=== PATIENT | female | born 1985 | race Caucasian/White ===

== ENCOUNTER 2022-12-30 20:11 | Outpatient (CLI) | payer MEDICAID ==
[~2022-12-30] VITALS: Ht 162.6 cm; Wt 83.2 kg
--- NOTE | 2022-12-30 20:15 | NUR ---
G1l0. 28.5. Ambulatory to [facility] 6 with spouse. Clean gown on. EFM and TOCO explained and applied. Pt states she has been cramping since last night. Pt reports loosing her mucous plug throughtout the day and unsure if her water broke. Pt stats "I just wanted to come and make sure nothing was going on." Denies vaginal bleeding and reports good movement. Plan of care explained. 2027: SVE /-2. Bulgy bag noted on exam. 2050: called and updated on pt's status. See physican notifcation. Pt updated on plan of care and questions answered. Pt and spouse anxious and emotional support given. 2104: IV started. LR infusing per orders. 2112: Betamethasone and procardia given per providers orders. 2304: SVE recheck per providers orders /-2 with bulgy bag. Quesitons answered and possible transfer explained. 2313: called to come evaluate pt. 2344: at bedside to evaulate pt's status. Bedside ultrasound completed. Vertex presentation noted. SVE completed by provider and unchanged. explains need to be transfered to [facility] at this time. Pt and spouse agreeable and anxious. Questions answered by provider. 0030: Orders received to start Magnesium by . Plan of care explained to pt and spouse. 0035: Second IV started. 0050: Reyna inserted per magnesium protocol. 0055: Magnesium 4G bolus started pt orders and verified by Heath ALANIS. EMS transport here. 0105: Magnesium 2G maintance dose startd per orders and verified by Heath ALANIS. 0110: Pt off unit with EMS transportation.
[2022-12-30 20:30] VITALS: BP 123/79; PULSE 108; TEMP 98.4
[2022-12-30] MEDS ORDERED: PRENATAL MVI PO (20:35)
[2022-12-30 21:00] VITALS: PULSE 97
[2022-12-30 21:30] VITALS: PULSE 98
[2022-12-30 22:00] VITALS: BP 125/86; PULSE 98
[2022-12-30 22:30] VITALS: BP 126/82; PULSE 96
[2022-12-30 22:38] LABS: COLLECTION METHOD CLEAN CATCH
[2022-12-30 23:00] VITALS: BP 134/90; PULSE 90
[2022-12-30 23:07] LABS: URINE APPEARANCE Clear (CLEAR/HAZY); URINE COLOR Yellow (YELLOW); URINE GLUCOSE Negative (NEGATIVE); URINE KETONE Negative (NEGATIVE); URINE PROTEIN(semi-quant) Negative (NEGATIVE); URINE UROBILINOGEN 0.2 E.U/dL (0.2-1.0)
[2022-12-30 23:08] LABS: URINE BLOOD TRACE-INTACT (NEGATIVE); URINE NITRATE Negative (NEGATIVE)
[2022-12-30 23:14] LABS: MUCOUS Present (NOT PRESENT); URINE BACTERIA None Seen /hpf (NONE SEEN); URINE CALCIUM OXALATE CRYSTAL Present (NOT PRESENT); URINE WBC 0-2 /hpf (0-2)
[2022-12-31] VITALS: BP 145/93; PULSE 92
[2022-12-31 00:30] VITALS: BP 122/84; PULSE 96
[2022-12-31 00:59] VITALS: BP 124/87; PULSE 92
== END 2022-12-31 01:10 | disposition other institution (70) ==
LOC: LDRO 20:11 → LDR 20:58 → LDRO 12-31 01:10
PROVIDERS: Student in an Organized Health Care Education/Training Program
DX: O99.891 Other specified diseases and conditions complicating pregnancy (principal); R25.2 Cramp and spasm; Z3A.28 28 weeks gestation of pregnancy
CPT/HCPCS: J0290; J0702; J3475; J7120